=== PATIENT | female | born 1985 | race Caucasian/White ===

== ENCOUNTER 2019-05-31 05:26 | Emergency (ER) | payer BC ==
[~2019-05-31] VITALS: Ht 165.1 cm; Wt 59.0 kg
[2019-05-31] MEDS ORDERED: CIPR-262 PO (05:34)
[2019-05-31 05:49] LABS: *BILIRUBIN,URIN NEGATIVE (NEGATIVE); *BLOOD, URINE NEGATIVE (NEGATIVE); *CLARITY,URINE CLEAR (CLEAR); *COLOR,URINE YELLOW (YELLOW); *KETONES,URINE NEGATIVE (NEGATIVE); *UROBILINOGEN,URINE 0.2 E.U./dl (NORMAL); LEUKOCYTE ESTERASE ,URINE NEGATIVE (NEGATIVE); NITRITE, URINE NEGATIVE (NEGATIVE); PH,URINE 5.5 (5.0-8.0); UGLUCOSE NEGATIVE (NEGATIVE)
[2019-05-31 05:52] LABS: *URINE HCG, QUAL NEGATIVE (NEGATIVE)
[2019-05-31] MEDS ORDERED: OXYCODONE/APAP 5-325 MG TABLET ONE (06:10)
[2019-05-31] MEDS ORDERED: ONDANSETRON ODT 4 MG TAB.RAPDIS ONE (06:10)
[2019-05-31] MEDS ORDERED: CYCLOBENZAPRINE HCL 10 MG TABLET ONE (06:12)
[2019-05-31] MEDS ORDERED: ONDANSETRON ODT 4 MG TAB.RAPDIS SL ONE (06:15)
[2019-05-31] MEDS ORDERED: OXYCODONE/APAP 5-325 MG TABLET PO ONE (06:15)
--- NOTE | 2019-05-31 06:17 | NUR ---
Patient discharged to home in stable conditon with friend taking patient home. Written and verbal after care instructions given. Patient verbalizes understanding of instructions. Walked out of ER with no distress noted.
[2019-05-31 06:19] VITALS: BP 112/78
[2019-05-31] MEDS ORDERED: CYCLOBENZAPRINE HCL 10 MG TABLET PO ONE (06:30)
== END 2019-05-31 06:20 | disposition home or self-care (01) ==
LOC: ER 05:33
DX: M54.5 Low back pain (principal); Z79.2 Long term (current) use of antibiotics
CPT/HCPCS: 84703; A4663; Q0162